=== PATIENT | male | born 1990 | race Caucasian/White ===

== ENCOUNTER 2024-08-17 01:20 | Emergency (ER) | payer OTHER ==
[2024-08-17] MEDS: Orphenadrine 60 MG/2 ML Inj IM ONE (02:05)
[2024-08-17] MEDS: Ketorolac 60 MG/2 ML SDV IM ONE (02:06)
== END 2024-08-17 02:34 | disposition home or self-care (01) ==
LOC: MW.ED 01:20
DX: G89.29 Other chronic pain (principal); M25.512 Pain in left shoulder; Z91.048 Other nonmedicinal substance allergy status
CPT/HCPCS: 96372; 99283; J1885; J2360